=== PATIENT | female | born 1970 | race Caucasian/White ===

== ENCOUNTER 2018-06-27 10:23 | Day surgery (SDC) | payer OTHER ==
[2018-06-27] MEDS ORDERED: FENTAnyl 50 MCG/ML VIAL ×2 (12:12→12:13)
[2018-06-27] MEDS ORDERED: MIDAZOLAM 1 MG/ML 2 ML INJ ×3 (12:12→12:17)
== END 2018-06-27 14:38 | disposition home or self-care (01) ==
LOC: GIL 10:23
DX: K64.8 Other hemorrhoids (principal)
CPT/HCPCS: 45378; 84703